=== PATIENT | male | born 1990 | race African-American/Black ===

== ENCOUNTER 2017-10-24 08:56 | Emergency (ER) | payer OTHER ==
[~2017-10-24] VITALS: Ht 160 cm; Wt 136.1 kg
[~2017-10-24 08:56] MED LIST: CLARITIN10 MG PO; ECONOPRED PLUS10 M1 OP; HYDROCHLOROTHIA25 M2 PO; NOHOMEMEDICATIONS; ZESTRIL20 MG PO
[2017-10-24] MEDS ORDERED: MOBIC15 MG PO (09:40)
[2017-10-24] MEDS ORDERED: HYDROCHLOROTHIA25 M2 PO (09:41)
[2017-10-24 10:01] VITALS: BP 130/75
== END 2017-10-24 10:21 | disposition home or self-care (01) ==
LOC: ER 08:56
DX: I10 Essential (primary) hypertension (principal); M72.2 Plantar fascial fibromatosis; Z94.7 Corneal transplant status

== ENCOUNTER 2018-05-03 12:31 | Emergency (ER) | payer OTHER ==
[~2018-05-03] VITALS: Ht 160 cm; Wt 141.1 kg
[~2018-05-03 12:31] MED LIST changes: +MOBIC15 MG PO
[2018-05-03] MEDS ORDERED: NAPROSYN500 MG PO (13:21)
[2018-05-03 13:53] VITALS: BP 128/78
== END 2018-05-03 13:58 | disposition home or self-care (01) ==
LOC: ER 12:31
DX: M25.512 Pain in left shoulder (principal); I10 Essential (primary) hypertension

== ENCOUNTER 2018-11-16 22:01 | Emergency (ER) | payer OTHER ==
[~2018-11-16] VITALS: Ht 160 cm; Wt 142.4 kg
[~2018-11-16 22:01] MED LIST changes: +AFRIN30 ML NASAL; +CETIRIZINE HCL10 MG PO; +CHLORTHALIDONE25 MG PO; +LISINOPRIL20 MG PO; +NAPROSYN500 MG PO; +PRED FORTE 1% EY5 M1 OPHTHALMIC; +PREDNISONE 20 M20 M1 PO; +TRIMETHOPRIM /P10 M1
[2018-11-16] MEDS ORDERED: INDOMETHACIN 2525 MG PO (23:27)
[2018-11-17 00:48] VITALS: BP 149/79
== END 2018-11-17 00:49 | disposition home or self-care (01) ==
LOC: ER 22:01
DX: M25.572 Pain in left ankle and joints of left foot (principal); I10 Essential (primary) hypertension

== ENCOUNTER 2019-07-03 15:59 | Emergency (ER) | payer OTHER ==
[~2019-07-03] VITALS: Ht 160 cm; Wt 142.9 kg
[~2019-07-03 15:59] MED LIST changes: +INDOMETHACIN 2525 MG PO
[2019-07-03] MEDS ORDERED: MOBIC7.5 MG PO (17:41)
[2019-07-03] MEDS ORDERED: NORCO 5-325 TA1 EAC1 PO (17:41)
[2019-07-03 17:52] VITALS: BP 169/97
== END 2019-07-03 17:48 | disposition home or self-care (01) ==
LOC: ER 15:59
DX: M72.2 Plantar fascial fibromatosis (principal); I10 Essential (primary) hypertension

== ENCOUNTER 2020-12-13 08:45 | Emergency (ER) | payer OTHER ==
[~2020-12-13] VITALS: Ht 157.5 cm; Wt 142.9 kg
[~2020-12-13 08:45] MED LIST changes: +MOBIC7.5 MG PO; +NORCO 5-325 TA1 EAC1 PO
[2020-12-13] MEDS ORDERED: PRED FORTE 1% EY5 M1 OPHTHALMIC (08:54)
[2020-12-13] MEDS ORDERED: PREDNISONE50 MG PO (09:12)
[2020-12-13] MEDS ORDERED: HYDROCODON-ACE1 EAC7 PO (09:12)
[2020-12-13] MEDS ORDERED: ZESTRIL20 MG PO (09:12)
[2020-12-13 10:05] VITALS: BP 183/110
== END 2020-12-13 10:05 | disposition home or self-care (01) ==
LOC: ER 08:45
DX: M72.2 Plantar fascial fibromatosis (principal); I10 Essential (primary) hypertension; Z76.0 Encounter for issue of repeat prescription; Z98.890 Other specified postprocedural states; Z79.899 Other long term (current) drug therapy